=== PATIENT | female | born 1990 | race Two or more races ===

== ENCOUNTER → 2017-03-30 | Outpatient (CLI) | payer OTHER | END | disposition disaster alternative care site (69) | LOC: GRAD 08:52 | DX: R10.12 Left upper quadrant pain (principal); M47.896 Other spondylosis, lumbar region; N28.1 Cyst of kidney, acquired; K76.0 Fatty (change of) liver, not elsewhere classified | CPT/HCPCS: Q9967 ==

== ENCOUNTER → 2017-05-01 | Outpatient (CLI) | payer OTHER ==
--- NOTE | ~2017-05-01 | PUL ---
PATIENT'S NAME: ENRICO ROSADO [facility] AGE: 26 Y [address] ROOM: [place] [id number] LOCATION: [facility] ADMIT DATE: 05/01/2017 Pulmonary DISCHARGE DATE: FAMILY PHYSICIAN: Katina Jones MD ATTENDING PHYSICIAN: Maame Yao NAME OF PROCEDURE: Home Sleep Test DATE OF PROCEDURE: May 01, 2017 TECH: Thom Sevilla [facility] SUMMARY: Patient underwent home sleep testing using a type III device and was studied for 8 hours 29 minutes. There were 7 apneas and 13 hypopneas for an apnea/hypopnea index normal at 2.4 events per hour. Oxygen saturations ranged from 84 to 93%. Saturations were below 88% for fewer than 5 minutes. Heart rate ranged from 57 to 109 beats per minute. IMPRESSION: Normal home sleep test. PLAN: Patient will receive results from the ordering provider. JACOB BRICENO MD OCT/ /[id number] dtt: 05/22/17 1429 , Jacob Briceno dtd: 05/09/17 1405
== END | disposition disaster alternative care site (69) ==
LOC: GSLP 13:29
DX: R40.0 Somnolence (principal)
CPT/HCPCS: G0399

== ENCOUNTER → 2017-05-16 | Outpatient (CLI) | payer OTHER | END | disposition disaster alternative care site (69) | LOC: GRAD 13:19 | DX: E01.0 Iodine-deficiency related diffuse (endemic) goiter (principal) ==